=== PATIENT | male | born 1990 | race Caucasian/White ===

== ENCOUNTER 2017-02-14 15:30 | Inpatient (IN) | payer MEDICAID ==
[~2017-02-14] VITALS: Ht 180.3 cm; Wt 66.7 kg
[~2017-02-14 15:30] MED LIST: 'PARAFON FORTE500 M1 PO; AMOXICILLIN500 MG PO; AUGMENTIN 875 M1 TAB PO; CIPRODEX 0.3%-7.5 ML OT; CLARITIN10 MG PO; HYDROCODONE BIT1 T11 PO; MOTRIN800 MG PO; NAPROSYN500 MG PO; SKELAXIN800 MG PO; TRAMADOL HCL50 MG PO; TRIMOX500 MG PO; ZITHROMAX Z PA250 MG PO
[2017-02-14 15:48] VITALS: BP 140/100
[2017-02-14 16:09] LABS: BASO # 0.1 10*3/uL (0.0-0.1); BASO % 0.6 % (0.0-1.0); EOS # 0.1 10*3/uL (0.0-0.4); EOS % 0.4 % (1.0-4.0); HEMATOCRIT 47.4 % (42.0-52.0); HEMOGLOBIN 16.1 g/dl (14.0-18.0); IG # 0.1 10*3/uL (0.0-0.1); LYMPH % 24.1 % (27.0-41.0); MEAN CELL VOLUME 86.5 fl (80.0-94.0); MEAN CORPUSCULAR HGB 29.4 pg (27.0-31.0); MEAN PLATELET VOLUME 9.1 fl (9.6-12.3); MONO # 0.8 10*3/uL (0.1-1.0); MONO % 6.6 % (3.0-9.0); NEUT # 8.5 10*3/uL (2.3-7.9); NEUT % 67.9 % (47.0-73.0); PLATELET COUNT AUTOMATED 340 10*3/uL (130-400); RED BLOOD COUNT 5.48 10*6/uL (4.50-5.90); RED CELL DISTRI WIDTH 13.4 % (0-14.5); WHITE BLOOD COUNT 12.5 10*3/uL (4.8-10.8)
[2017-02-14 16:25] LABS: ALBUMIN 4.4 gm/dl (3.1-4.5); ALKALINE PHOSPHATASE 84 U/L (45-117); BILIRUBIN, TOTAL 0.3 mg/dl (0.2-1.0); BUN 12 mg/dl (7-24); CARBON DIOXIDE 25 mmol/L (21-32); CHLORIDE 102 mmol/L (98-107); EST GLOM FILT AFRICAN AMERICAN > 60 ml/min; GLUCOSE 107 mg/dL (65-99); POTASSIUM 4.2 mmol/L (3.5-5.1); SGOT/AST 30 IU/L (3-35); SGPT/ALT 105 U/L (12-78); SODIUM 139 mmol/L (136-145); TOTAL PROTEIN 8.1 gm/dL (6.4-8.2)
[2017-02-14 16:54] VITALS: BP 133/83
[2017-02-14 17:07] LABS: PROTHROMBIN TIME 10.9 SECONDS (9.0-12.4)
[2017-02-14 20:00] VITALS: BP 136/84
[2017-02-14 21:00] LABS: URINE AMPHETAMINES < 1000 (1000ng/ml); URINE BARBITURATES < 200 (200ng/ml); URINE COCAINE < 300 (300ng/ml)
[2017-02-14 21:10] LABS: BILIRUBIN NEGATIVE (NEGATIVE); BLOOD NEGATIVE (NEGATIVE); CLARITY CLEAR (CLEAR); COLOR YELLOW (YELLOW); GLUCOSE NEGATIVE (NEGATIVE); KETONE NEGATIVE (NEGATIVE); LEUKO ESTERASE NEGATIVE (NEGATIVE); NITRITE NEGATIVE (NEGATIVE); PROTEIN NEGATIVE (NEGATIVE); SPECIFIC GRAVITY >= 1.030 (1.005-1.030)
[2017-02-14 21:18] LABS: BACTERIA 1+; EPITHELIAL CELLS 0-2; MUCOUS TRACE; URINE REFLEX COMMENT NO (NO)
[2017-02-15] VITALS: BP 128/75
[2017-02-15 04:00] VITALS: BP 105/68
[2017-02-15 04:04] LABS: BASO # 0.1 10*3/uL (0.0-0.1); BASO % 0.7 % (0.0-1.0); EOS # 0.3 10*3/uL (0.0-0.4); HEMATOCRIT 47.4 % (42.0-52.0); HEMOGLOBIN 15.7 g/dl (14.0-18.0); LYMPH # 4.5 10*3/uL (1.3-4.4); LYMPH % 40.6 % (27.0-41.0); MEAN CELL VOLUME 88.8 fl (80.0-94.0); MEAN CORPUSCULAR HGB 29.4 pg (27.0-31.0); MEAN CORPUSCULAR HGB CONC 33.1 g/dl (33.0-37.0); MONO # 0.9 10*3/uL (0.1-1.0); MONO % 8.1 % (3.0-9.0); NEUT # 5.2 10*3/uL (2.3-7.9); NEUT % 47.3 % (47.0-73.0); PLATELET COUNT AUTOMATED 289 10*3/uL (130-400); RED BLOOD COUNT 5.34 10*6/uL (4.50-5.90); RED CELL DISTRI WIDTH 13.6 % (0-14.5)
[2017-02-15 08:00] VITALS: BP 112/86
[2017-02-15 12:00] VITALS: BP 113/67
[2017-02-15 16:00] VITALS: BP 128/74
[2017-02-15 20:00] VITALS: BP 128/85
[2017-02-16] VITALS: BP 130/77
[2017-02-16 08:00] VITALS: BP 124/74
[2017-02-16 12:00] VITALS: BP 124/81
[2017-02-16 16:00] VITALS: BP 134/84
[2017-02-16 20:00] VITALS: BP 132/78
[2017-02-17] VITALS: BP 140/82
[2017-02-17 06:28] LABS: EST GLOM FILT AFRICAN AMERICAN > 60 ml/min
[2017-02-17 08:00] VITALS: BP 104/50
[2017-02-17] MEDS ORDERED: ATARAX,VISTARIL50 MG PO (09:51)
[2017-02-17] MEDS ORDERED: CARBIDOPA/LEVOD1 TA1 PO (09:51)
[2017-02-17] MEDS ORDERED: ZOFRAN 4 MG ED2 TAB PO (09:51)
== END 2017-02-17 11:50 | disposition home or self-care (01) | DRG 897 ==
LOC: ED 15:30 → 5E 15:59 → EDHOLD 15:59 → 5E 16:43
PROVIDERS: Internal Medicine; Nurse Practitioner Family
DX: F11.23 Opioid dependence with withdrawal (principal); R65.10 Systemic inflammatory response syndrome (SIRS) of non-infectious origin without acute organ dysfunction; F19.10 Other psychoactive substance abuse, uncomplicated; F17.210 Nicotine dependence, cigarettes, uncomplicated

== ENCOUNTER 2017-09-05 13:07 | Inpatient (IN) | payer OTHER ==
[~2017-09-05] VITALS: Ht 177.8 cm; Wt 62.2 kg
[~2017-09-05 13:07] MED LIST changes: +ATARAX,VISTARIL50 MG PO; +CARBIDOPA/LEVOD1 TA1 PO; +ZOFRAN 4 MG ED2 TAB PO
[2017-09-05 14:45] VITALS: BP 126/78
--- NOTE | 2017-09-05 14:45 | NUR ---
A 27 year old MALE, [place] admitted to room # 426 for stabilization. Reports an addiction to HEROIN AND COCAINE last used 24 hours prior to admission. Compliant with admission procedure. Patient denies any anxiety, but is unable to sit still, taps toes to floor continuously, looks about room, unable to focus eyes on nurse during interview. See assessment forms for additional information about patient status.
[2017-09-05 15:40] LABS: BASO # 0.1 10*3/uL (0.0-0.1); BASO % 0.5 % (0.0-1.0); EOS % 0.2 % (1.0-4.0); HEMATOCRIT 44.8 % (42.0-52.0); HEMOGLOBIN 14.5 g/dl (14.0-18.0); LYMPH # 2.4 10*3/uL (1.3-4.4); LYMPH % 19.5 % (27.0-41.0); MEAN CELL VOLUME 89.4 fl (80.0-94.0); MEAN CORPUSCULAR HGB 28.9 pg (27.0-31.0); MEAN CORPUSCULAR HGB CONC 32.4 g/dl (33.0-37.0); MEAN PLATELET VOLUME 8.9 fl (9.6-12.3); MONO # 0.5 10*3/uL (0.1-1.0); MONO % 4.3 % (3.0-9.0); NEUT # 9.2 10*3/uL (2.3-7.9); NEUT % 75.3 % (47.0-73.0); PLATELET COUNT AUTOMATED 304 10*3/uL (130-400); RED BLOOD COUNT 5.01 10*6/uL (4.50-5.90); RED CELL DISTRI WIDTH 13.3 % (0-14.5); WHITE BLOOD COUNT 12.2 10*3/uL (4.8-10.8)
[2017-09-05 15:56] LABS: ALBUMIN 3.7 gm/dl (3.1-4.5); ALKALINE PHOSPHATASE 82 U/L (45-117); BUN 8 mg/dl (7-24); CHLORIDE 108 mmol/L (98-107); CREATININE 0.93 mg/dL (0.70-1.30); ETHYL ALCOHOL < 3.0 mg/dl (<3); POTASSIUM 4.5 mmol/L (3.5-5.1); SGOT/AST 17 IU/L (3-35); SGPT/ALT 27 U/L (12-78); SODIUM 143 mmol/L (136-145); TOTAL PROTEIN 7.2 gm/dL (6.4-8.2)
--- NOTE | 2017-09-05 15:56 | NUR ---
ROBAXIN AND REQUIP GIVEN PO FOR C/O MUSCLE ACHES AND RESTLESS LEGS. WILL MONITOR EFFECTIVNESS. CALL LIGHT IN REACH.
[2017-09-05 16:00] VITALS: BP 122/75
--- NOTE | 2017-09-05 16:56 | NUR ---
ROBAXIN AND REQUIP EFFECTIVE. PT RESTING PEACEFULLY. CALL LIGHT IN REACH.
[2017-09-05 19:04] LABS: BILIRUBIN NEGATIVE (NEGATIVE); BLOOD NEGATIVE (NEGATIVE); CLARITY CLOUDY (CLEAR); COLOR YELLOW (YELLOW); GLUCOSE NEGATIVE (NEGATIVE); KETONE NEGATIVE (NEGATIVE); LEUKO ESTERASE NEGATIVE (NEGATIVE); NITRITE NEGATIVE (NEGATIVE)
[2017-09-05 19:12] LABS: BACTERIA 2+; CALCIUM OXALATE CRYSTALS 1+
[2017-09-05 19:19] LABS: URINE AMPHETAMINES < 1000 (1000ng/ml); URINE BARBITURATES < 200 (200ng/ml); URINE BENZODIAZEPINES > 200 (200ng/ml); URINE CANNABINOIDS (THC) > 50 (50ng/ml); URINE COCAINE > 300 (300ng/ml); URINE METHADONE < 300 (300ng/ml); URINE OPIATES > 300 (300ng/ml)
[2017-09-05 19:23] LABS: URINE PHENCYCLIDINE < 25 (25ng/ml)
[2017-09-05 20:00] VITALS: BP 142/86
--- NOTE | 2017-09-05 20:00 | NUR ---
PATIENT WAS GIVEN CATAPRES AND NICORDERM PATCH PER PATIENT REQUEST. PATIENT HAD COMPLAINT OF LEGS FEELING RESTLESS UPON ASSESS. WILL REASSESS AND CONTINUE TO MONITOR PATIENT.
--- NOTE | 2017-09-05 21:30 | NUR ---
PATIENT VERBALIZES THAT CATAPRES HAS BEEN EFFECTIVE AT RELIEVING RESTLESSNESS. WILL CONTINUE TO MONITOR PATIENT.
[2017-09-06] VITALS: BP 141/84
--- NOTE | 2017-09-06 00:30 | NUR ---
PATIENT GIVEN SCHED SUBOXEN. WILL REASSESS TO EVALUATE EFFECTIVENESS. PATIENT GIVEN CATAPRES AND ROBAXIN PER PATIENT REQUEST FOR RESTLESS LEGS. WILL CONTINUE TO MONITOR PATIENT. SEE SHIFT ASSESSMENT.
--- NOTE | 2017-09-06 06:40 | NUR ---
PATIENT IS SLEEPING COMFORTABLY IN BED. PATIENT HAS NO S&S OF PAIN OR DISCOMFORT. WILL CONTINUE TO MONITOR PATIENT. SEE SHIFT ASSESSSMENT.
[2017-09-06 08:00] VITALS: BP 118/80
--- NOTE | 2017-09-06 08:50 | NUR ---
PT GIVEN ROBAXIN, VISTARIL, AND REQUIP FOR MUSCLE ACHES, ANXIETY, AND RESTLESS LEGS. WILL MONITOR FOR EFFECTIVENESS. CALL LIGHT IN REACH.
--- NOTE | 2017-09-06 09:50 | NUR ---
ROBAXIN, VISTARIL, AND REQUIP EFFECTIVE. PT RESTING IN BED, CALL LIGHT IN REACH.
[2017-09-06 12:00] VITALS: BP 136/71
--- NOTE | 2017-09-06 15:58 | NUR ---
D/C PLAN: SOCIAL MEDIA PROJECT MANAGER SPOKE WITH PATIENT ABOUT NUMEROUS REFERRAL OPTIONS. PATIENT REFUSED THOSE REFERRALS. SAMY GONZALEZ B.A. SOCIAL MEDIA PROJECT MANAGER
[2017-09-06 16:00] VITALS: BP 116/78
--- NOTE | 2017-09-06 17:22 | NUR ---
PT GIVEN CLONIDINE AND ROBAXIN PO FOR C/O ANXIETY AND MUSCLE ACHES. WILL MONITOR FOR EFFECTIVENESS. CALL LIGHT IN REACH.
--- NOTE | 2017-09-06 18:15 | NUR ---
CLONIDINE AND ROBAXIN EFFECTIVE. PT RESTING IN BED. CALL LIGHT IN REACH.
[2017-09-06 20:00] VITALS: BP 112/75
--- NOTE | 2017-09-06 20:41 | NUR ---
PATIENT IS SITTING UP COMFORTABLY IN BED. PATIENT DENIES ANY PAIN OR DISCOMFORT AT THIS TIME. PATIENT VERBALIZES THAT THE ONLY S&S OF WITHDRAWALS OR RESTLESS FEELINGS AND ANXIETY. WILL CONTINUE TO MONITOR PATIENT, PATIENT WAS REORIENTED TO ROOM AND CALL LIGHT SYSTEM. FAMILY MEMBER IS AT THE PATIENTS BEDSIDE. SEE SHIFT ASSESSMENT.
[2017-09-07] VITALS: BP 117/73
--- NOTE | 2017-09-07 01:43 | NUR ---
PATIENT RESTING COMFORTABLY IN BED. PATIENT DENIES ANY S&S OF WITHDRAWALS, AND HAS NO FURTHER REQUESTS AT THIS TIME. CALL LIGHT WITHIN REACH. SEE SHIFT ASSESSMENT.
--- NOTE | 2017-09-07 04:40 | NUR ---
PATIENT WAS GIVEN CATAPRES AND ROBAXIN FOR RESTLESS LEGS AND FEELING ANXIOUS. WILL CONTINUE TO MONITOR PATIENT AND REASSESS EFFECTIVENESS.
--- NOTE | 2017-09-07 06:35 | NUR ---
PATIENT IS RESTING IN BED. CATAPRES AND ROBAXIN PER PATIENT REQUEST HAVE BEEN EFFECTIVE IN REDUCING RESTLESSNESS. PATIENT HAS NO FURTHER REQUESTS AT THIS TIME. CALL LIGHT IS WITHIN REACH.
[2017-09-07 08:00] VITALS: BP 120/60
--- NOTE | 2017-09-07 10:30 | NUR ---
States that medications given earlier effective.
[2017-09-07 12:00] VITALS: BP 114/63
[2017-09-07 16:00] VITALS: BP 108/56
--- NOTE | 2017-09-07 16:40 | NUR ---
Robaxin given and motrin per prn order for pt c/o legs aching and restless.
[2017-09-07 20:00] VITALS: BP 119/73
--- NOTE | 2017-09-07 20:12 | NUR ---
PRN VISTORIL GIVEN FOR PATIENTS C/O OF ANXIETY. WILL MONITOR.
--- NOTE | 2017-09-07 22:10 | NUR ---
REQUIP GIVEN PER PATIENT REQUEST FOR WRESTLESS LEGS AND TRAZODONE GIVEN FOR INSOMNIA. WILL MONITOR.
--- NOTE | 2017-09-07 22:45 | NUR ---
ROBAXIN GIVEN FOR MUSCLE SPASMS AND SECOND DOSE OF TRAZODONE GIVEN TO PATIENT FOR INSOMNIA. WILL MONITOR
--- NOTE | 2017-09-07 22:46 | NUR ---
SECOND DOSE OF TRAZODONE WAS GIVEN, FIRST DOSE WAS NOT EFFECTIVE. METHOCARBAMOL WAS GIVEN FOR C/O OF LEG CRAMPS. WILL CONTINUE TO MONITOR.
--- NOTE | 2017-09-07 23:20 | NUR ---
TRAZODONE WAS EFFECTIVE. PATIENT ASLEEP WITH RESPIRATIONS >12. ROBAXIN EFFECTIVE. NO C/O MUSCLE SPASMS.
[2017-09-08] VITALS: BP 115/57
[2017-09-08 08:00] VITALS: BP 121/70
[2017-09-08 12:00] VITALS: BP 126/72
[2017-09-08] MEDS ORDERED: ZOFRAN 4 MG ED2 TAB PO (12:40)
[2017-09-08] MEDS ORDERED: ATARAX,VISTARIL50 MG PO (12:40)
--- NOTE | 2017-09-08 13:19 | NUR ---
PT LEFT AMA.
== END 2017-09-08 13:19 | disposition left against medical advice (07) | DRG 894 ==
LOC: 4E 13:07
PROVIDERS: Registered Nurse; ADMIT Emergency Medicine
DX: F11.23 Opioid dependence with withdrawal (principal); E87.8 Other disorders of electrolyte and fluid balance, not elsewhere classified; F12.10 Cannabis abuse, uncomplicated; F14.10 Cocaine abuse, uncomplicated; G25.81 Restless legs syndrome; F17.210 Nicotine dependence, cigarettes, uncomplicated; Z53.21 Procedure and treatment not carried out due to patient leaving prior to being seen by health care provider; Z80.7 Family history of other malignant neoplasms of lymphoid, hematopoietic and related tissues; Z71.6 Tobacco abuse counseling

== ENCOUNTER 2018-06-07 16:34 | Emergency (ER) | payer OTHER ==
[~2018-06-07] VITALS: Ht 175.2 cm; Wt 72.6 kg
== END 2018-06-07 17:30 | disposition home or self-care (01) ==
LOC: ED 16:34
DX: T40.4X1A Poisoning by other synthetic narcotics, accidental (unintentional), initial encounter (principal); F17.200 Nicotine dependence, unspecified, uncomplicated; F14.10 Cocaine abuse, uncomplicated; F12.10 Cannabis abuse, uncomplicated; Z98.890 Other specified postprocedural states; Y92.9 Unspecified place or not applicable